=== PATIENT | male | born 1995 | race American Indian/Alaskan Native ===

== ENCOUNTER 2025-04-05 18:48 | Emergency (ER) | payer SELFPAY ==
[2025-04-05] MEDS: Lidocaine 1% PF 2 ML SDV INJECT ONE (19:17)
[2025-04-05] MEDS: Diphtheria,Pertussis(Acell),Tetanus Vaccine 0.5 ML Syringe IM ONE (19:17)
== END 2025-04-05 19:39 | disposition home or self-care (01) ==
LOC: MW.ED 18:48
DX: S01.511A Laceration without foreign body of lip, initial encounter (principal); Z23 Encounter for immunization; Z88.0 Allergy status to penicillin; Y04.2XXA Assault by strike against or bumped into by another person, initial encounter
CPT/HCPCS: 12011; 90471; 90715; 99282; J2003